=== PATIENT | female | born 1945 | race Caucasian/White ===

== ENCOUNTER 2018-11-05 22:26 | Inpatient (IN) ==
[2018-11-05] MEDS ORDERED: Morphine Inj 4 MG/ML Vial IV.PUSH ONE (23:07)
[2018-11-05] MEDS ORDERED: Sod Chloride 0.9% Inj 1,000 ML IV.SIG ONE (23:07)
--- NOTE | 2018-11-05 23:21 | ED ---
HPI General Chief Complaint: Abdominal Pain Stated Complaint: Weakness Time Seen by Provider: 11/05/18 22:59 Source: patient, EMS and old records reviewed Mode of arrival: EMS Limitations: no limitations History of Present Illness HPI narrative: 73 yo F BIBEMS 2/2 nausea and abdominal pain. Duration is approx one day. "Kidneys are acting up" per Dr Torres who evaluated pt in pt's [facility]. + Decreased appetite. No vomiting or diarrhea. No urinary complaint. Timing constant. Severity moderate. No modifying factor known to patient. Related Data Home Medications Medication Instructions Recorded Confirmed ipratropium-albuterol 3 ml INHALATION Q6-8H PRN 11/06/18 11/06/18 levothyroxine 25 mcg PO DAILY 11/06/18 11/06/18 lisinopril 40 mg PO DAILY 11/06/18 11/06/18 metoclopramide HCl 5 mg PO TID 11/06/18 11/06/18 metoprolol succinate 25 mg PO DAILY 11/06/18 11/06/18 montelukast 10 mg PO QPM 11/06/18 11/06/18 pantoprazole 40 mg PO BID 11/06/18 11/06/18 Allergies Allergy/AdvReac Type Severity Reaction Status Date / Time Sulfa (Sulfonamide Allergy Severe hives Verified 11/05/18 23:12 Antibiotics) aspirin AdvReac Severe Hives Verified 11/05/18 23:12 penicillin G AdvReac Severe Hives Verified 11/05/18 23:12 honey Allergy Intermediate honey Uncoded 11/05/18 23:12 itself causes hives MRI PRECAUTION AdvReac Severe pacemaker Uncoded 11/05/18 23:12 non compatible vv 02/07/15 Review of Systems ROS: all other systems reviewed are negative [facility]LY [facility] Family History Family History Father Heart disease Mother Heart disease Social History Social History Substance History: No History of Abuse Second Hand Smoke Exposure: No Smoking Status: Never smoker How Often Do You Have a Drink Containing Alcohol: Never Recent Travel in [facility] within the Last 8 Weeks: No Recent Out of Country Travel within the Last 8 Weeks: No Course Initial Documented Vital Signs Temperature 98.8 F 11/05/18 23:01 Pulse Rate 66 11/05/18 23:01 Respiratory Rate 16 11/05/18 23:01 Blood Pressure 90/55 L 11/05/18 23:01 Pulse Oximetry 97 11/05/18 23:01 Last Documented Vital Signs Temperature 98.3 F 11/07/18 19:47 Pulse Rate 102 H 11/07/18 19:47 Respiratory Rate 17 11/07/18 19:47 Blood Pressure 91/48 L 11/07/18 19:47 Pulse Oximetry 98 11/07/18 19:47 Medical Decision Making MDM Narrative Medical decision making narrative: PT arrives with PANCHITO with Mg of 0.5. 2g IV magnesium ordered Dr Torres' requested H management. d/w Dr Solorio for [facility]. Medical Screen Exam Complete: Yes Emergency Medical Condition: Yes Lab Data Result diagrams: 11/06/18 05:38 11/07/18 05:10 Lab Results 11/05/18 11/05/18 11/05/18 Range/Units 23:20 23:20 23:20 WBC 13.1 H (4.0-11.0) th/mm3 RBC 3.17 L (4.00-5.30) mil/mm3 Hgb 10.2 L (11.6-15.3) gm/dL Hct 29.6 L (35.0-46.0) % MCV 93.6 (80.0-100.0) fL MCH 32.2 (27.0-34.0) pg MCHC 34.4 (32.0-36.0) % RDW 14.0 (11.6-17.2) % Plt Count 205 (150-450) th/mm3 MPV 9.7 (7.0-11.0) fL Neut % (Auto) 75.9 H (16.0-70.0) % Lymph % (Auto) 16.3 (9.0-44.0) % [place] % (Auto) 6.9 (0.0-8.0) % Eos % (Auto) 0.5 (0.0-4.0) % Baso % (Auto) 0.4 (0.0-2.0) % Neut # (Auto) 10.0 H (1.8-7.7) th/mm3 Lymph # (Auto) 2.1 (1.0-4.8) th/mm3 [place] # (Auto) 0.9 (0.0-0.9) th/mm3 Eos # (Auto) 0.1 (0.0-0.4) th/mm3 Baso # (Auto) 0.1 (0.0-0.2) th/mm3 WBC Differential . Differential Comment Auto diff final Sodium 123 L* (136-145) meq/L Potassium 3.4 L (3.5-5.1) meq/L Chloride 92 L (98-107) meq/L Carbon Dioxide 17.2 L (21.0-32.0) meq/L Anion Gap 14 (5-15) meq/L BUN 43 H (7-18) mg/dL Creatinine 1.92 H (0.50-1.00) mg/dL Estimated GFR 26 L (>89) mL/min Random Glucose 154 H (74-106) mg/dL Calcium 6.5 L* (8.5-10.1) mg/dL Calcium Adj for Albumin 7.2 L* (8.5-10.1) mg/dL Magnesium 0.5 L (1.5-2.5) mg/dL Total Bilirubin 0.4 (0.2-1.0) mg/dL AST 18 (15-37) U/L ALT 14 (10-53) U/L Alkaline Phosphatase 118 H (45-117) U/L Total Protein 6.6 (6.4-8.2) g/dL Albumin 3.1 L (3.4-5.0) g/dL Lipase 203 (73-393) U/L Urine Color Straw (Yellw/Straw) Urine Clarity Clear (Clear) Urine pH 5.0 (5.0-8.5) Ur Specific [place] 1.005 (1.002-1.035) Urine Protein Negative (Neg-Trace) mg/dL Urine Glucose (UA) Negative (Negative) mg/dL Urine Ketones Negative (Negative) mg/dL Urine Occult Blood Small H (Negative) Urine Nitrate Negative (Negative) Urine Bilirubin Negative (Negative) Urine Urobilinogen Less than 2 (Less than 2) mg/dL Ur Leukocyte Esterase Negative (Negative) Urine RBC Less than 1 (0-3) /hpf Urine WBC Less than 1 (0-5) /hpf Ur Squamous Epith Cells 1 (0-5) /hpf Urine Bacteria Occasional H (None) /hpf Urine Mucus Few H (Occasional) /lpf Micro UA Comment Cath-culture ind Ur Microscopic Review Not Reportable Urine Culture Comments Cath-cult indicated 11/06/18 11/06/18 11/07/18 Range/Units 05:38 05:38 05:10 WBC 10.1 (4.0-11.0) th/mm3 RBC 3.19 L (4.00-5.30) mil/mm3 Hgb 10.4 L (11.6-15.3) gm/dL Hct 30.6 L (35.0-46.0) % MCV 95.9 (80.0-100.0) fL MCH 32.5 (27.0-34.0) pg MCHC 33.9 (32.0-36.0) % RDW 13.7 (11.6-17.2) % Plt Count 198 (150-450) th/mm3 MPV 9.3 (7.0-11.0) fL Neut % (Auto) 58.1 (16.0-70.0) % Lymph % (Auto) 32.5 (9.0-44.0) % [place] % (Auto) 8.3 H (0.0-8.0) % Eos % (Auto) 0.8 (0.0-4.0) % Baso % (Auto) 0.3 (0.0-2.0) % Neut # (Auto) 5.9 (1.8-7.7) th/mm3 Lymph # (Auto) 3.3 (1.0-4.8) th/mm3 [place] # (Auto) 0.8 (0.0-0.9) th/mm3 Eos # (Auto) 0.1 (0.0-0.4) th/mm3 Baso # (Auto) 0.0 (0.0-0.2) th/mm3 WBC Differential . Differential Comment Auto diff final Sodium 130 L 138 (136-145) meq/L Potassium 3.5 3.2 L (3.5-5.1) meq/L Chloride 99 107 D (98-107) meq/L Carbon Dioxide 19.4 L 22.1 (21.0-32.0) meq/L Anion Gap 12 9 (5-15) meq/L BUN 34 H 19 H (7-18) mg/dL Creatinine 1.54 H 0.96 (0.50-1.00) mg/dL Estimated GFR 33 L 57 L (>89) mL/min Random Glucose 111 H 101 (74-106) mg/dL Calcium 7.3 L* D 7.6 L (8.5-10.1) mg/dL Calcium Adj for Albumin 8.3 L D (8.5-10.1) mg/dL Magnesium 1.7 D (1.5-2.5) mg/dL Total Bilirubin 0.5 (0.2-1.0) mg/dL AST 23 (15-37) U/L ALT 13 (10-53) U/L Alkaline Phosphatase 112 (45-117) U/L Total Protein 6.2 L (6.4-8.2) g/dL Albumin 2.7 L (3.4-5.0) g/dL Lipase (73-393) U/L Urine Color (Yellw/Straw) Urine Clarity (Clear) Urine pH (5.0-8.5) Ur Specific [place] (1.002-1.035) Urine Protein (Neg-Trace) mg/dL Urine Glucose (UA) (Negative) mg/dL Urine Ketones (Negative) mg/dL Urine Occult Blood (Negative) Urine Nitrate (Negative) Urine Bilirubin (Negative) Urine Urobilinogen (Less than 2) mg/dL Ur Leukocyte Esterase (Negative) Urine RBC (0-3) /hpf Urine WBC (0-5) /hpf Ur Squamous Epith Cells (0-5) /hpf Urine Bacteria (None) /hpf Urine Mucus (Occasional) /lpf Micro UA Comment Ur Microscopic Review Urine Culture Comments 11/07/18 Range/Units 05:10 WBC (4.0-11.0) th/mm3 RBC (4.00-5.30) mil/mm3 Hgb (11.6-15.3) gm/dL Hct (35.0-46.0) % MCV (80.0-100.0) fL MCH (27.0-34.0) pg MCHC (32.0-36.0) % RDW (11.6-17.2) % Plt Count (150-450) th/mm3 MPV (7.0-11.0) fL Neut % (Auto) (16.0-70.0) % Lymph % (Auto) (9.0-44.0) % [place] % (Auto) (0.0-8.0) % Eos % (Auto) (0.0-4.0) % Baso % (Auto) (0.0-2.0) % Neut # (Auto) (1.8-7.7) th/mm3 Lymph # (Auto) (1.0-4.8) th/mm3 [place] # (Auto) (0.0-0.9) th/mm3 Eos # (Auto) (0.0-0.4) th/mm3 Baso # (Auto) (0.0-0.2) th/mm3 WBC Differential Differential Comment Sodium (136-145) meq/L Potassium (3.5-5.1) meq/L Chloride (98-107) meq/L Carbon Dioxide (21.0-32.0) meq/L Anion Gap (5-15) meq/L BUN (7-18) mg/dL Creatinine (0.50-1.00) mg/dL Estimated GFR (>89) mL/min Random Glucose (74-106) mg/dL Calcium (8.5-10.1) mg/dL Calcium Adj for Albumin (8.5-10.1) mg/dL Magnesium 1.3 L (1.5-2.5) mg/dL Total Bilirubin (0.2-1.0) mg/dL AST (15-37) U/L ALT (10-53) U/L Alkaline Phosphatase (45-117) U/L Total Protein (6.4-8.2) g/dL Albumin (3.4-5.0) g/dL Lipase (73-393) U/L Urine Color (Yellw/Straw) Urine Clarity (Clear) Urine pH (5.0-8.5) Ur Specific [place] (1.002-1.035) Urine Protein (Neg-Trace) mg/dL Urine Glucose (UA) (Negative) mg/dL Urine Ketones (Negative) mg/dL Urine Occult Blood (Negative) Urine Nitrate (Negative) Urine Bilirubin (Negative) Urine Urobilinogen (Less than 2) mg/dL Ur Leukocyte Esterase (Negative) Urine RBC (0-3) /hpf Urine WBC (0-5) /hpf Ur Squamous Epith Cells (0-5) /hpf Urine Bacteria (None) /hpf Urine Mucus (Occasional) /lpf Micro UA Comment Ur Microscopic Review Urine Culture Comments Imaging Data Radiologist's impression: Abdomen/Pelvis CT 11/06/18 00:00 CONCLUSION: 1. No evidence of bowel wall thickening, diverticulitis or abscess identified. The bowel gas pattern is unremarkable. Cholecystectomy clips Chest X-Ray 11/06/18 00:36 CONCLUSION: Lungs are grossly clear. Left subclavian bipolar pacer good position. Discharge Plan Discharge Disposition Patient Disposition: ED Admit(ED Internal Use Only) Discharge Order Discharge Orders: ED Use Only Admit Order (Routine); Ordered 11/06/18 Ordered By: Scot Cartwright Physicians Team ED Provider: Scot Cartwright Primary Care Provider: Rodriguez Torres Attending Provider: Stacy Lunsford Status ED Status: Left Department Discharge Information Discharge Date/Time: 11/06/18 03:44
[2018-11-05 23:55] LABS: Baso # (Auto) 0.1 th/mm3 (0.0-0.2); Baso % (Auto) 0.4 % (0.0-2.0); Eos # (Auto) 0.1 th/mm3 (0.0-0.4); Eos % (Auto) 0.5 % (0.0-4.0); Hematocrit 29.6 % (35.0-46.0); Hemoglobin 10.2 gm/dL (11.6-15.3); Lymph # (Auto) 2.1 th/mm3 (1.0-4.8); Lymph % (Auto) 16.3 % (9.0-44.0); Mean Corpuscular HGB Conc 34.4 % (32.0-36.0); Mean Corpuscular Hemoglobin 32.2 pg (27.0-34.0); Mean Corpuscular Volume 93.6 fL (80.0-100.0); Mean Platelet Volume 9.7 fL (7.0-11.0); Mono # (Auto) 0.9 th/mm3 (0.0-0.9); Mono % (Auto) 6.9 % (0.0-8.0); Neut % (Auto) 75.9 % (16.0-70.0); Platelet Count 205 th/mm3 (150-450); Red Blood Count 3.17 mil/mm3 (4.00-5.30); White Blood Count 13.1 th/mm3 (4.0-11.0)
[2018-11-06 00:03] LABS: Bacteria,Urine Occasional /hpf; Bilirubin,Urine Negative (Negative); Clarity,Urine Clear (Clear); Color,Urine Straw (Yellw/Straw); Glucose,Urine (UA) Negative (Negative); Leukocyte Esterase,Urine Negative (Negative); Mucus,Urine Few /lpf (Occasional); Nitrite,Urine Negative (Negative); Specific Gravity,Urine 1.005 (1.002-1.035); Squamous Epithelial Cell,Urine 1 /hpf (0-5)
[2018-11-06 00:09] LABS: Albumin 3.1 g/dL (3.4-5.0); Calcium 6.5 mg/dL (8.5-10.1); Carbon Dioxide 17.2 meq/L (21.0-32.0); Magnesium 0.5 mg/dL (1.5-2.5); Potassium 3.4 meq/L (3.5-5.1); Total Protein 6.6 g/dL (6.4-8.2)
[2018-11-06] MEDS ORDERED: Calcium Gluconate Inj 1 GM in Dextrose 5% in Water Inj 100 ML IV.SIG ONE ×2 (00:13)
[2018-11-06] MEDS: Heparin - SQ 10,000 UNITS/ML Vial SQ SCH (00:35)
[2018-11-06] MEDS: Senna/Docusate Sodium 8.6/50 MG Tablet PO SCH ×2 (00:35→10:09)
[2018-11-06] MEDS: Mag Sulf 1 gm/100 ml Premix 100 ML IV.SIG SCH ×2 (00:59→02:20)
--- NOTE | 2018-11-06 01:09 | XR ---
EXAM DATE: 11/06/2018 1:02 AM EST AGE/SEX: 73 years / Female INDICATIONS: Chest pain with weakness. CLINICAL DATA: This is the patient's initial encounter. Patient reports that signs and symptoms have been present for 1 day and indicates a pain score of Nonresponsive. MEDICAL/SURGICAL HISTORY: Non-responsive. Non-responsive. COMPARISON: No prior exams available for comparison. FINDINGS: A single AP view of the chest demonstrates the lungs to be symmetrically aerated without evidence of mass, infiltrate or effusion. The cardiomediastinal contours are unremarkable. Osseous structures a re intact. Left-sided subclavian dual-lead pacemaker in good position. Small lung volumes. CONCLUSION: Lungs are grossly clear. Left subclavian bipolar pacer good position. Electronically signed by: Pato Wells MD Board Certified Radiologist 11/06/2018 1:08 AM EST
--- NOTE | 2018-11-06 01:30 | CT ---
EXAM DATE: 11/06/2018 1:23 AM EST AGE/SEX: 73 years / Female INDICATIONS: Right lower quadrant pain. CLINICAL DATA: This is the patient's initial encounter. Patient reports that signs and symptoms have been present for 1 day and indicates a pain score of 8/10. MEDICAL/SURGICAL HISTORY: Congestive heart failure. Chronic obstructive pulmonary disease. Hy pertension. Pacemaker. RADIATION DOSE: 9.43 CTDI (mGy) COMPARISON: No prior exams available for comparison. TECHNIQUE: Multiple contiguous axial images were obtained through the abdomen. Images were obtained using multiple row detector helical technique. Using automated exposure control and adjustment of the mA and/or kV according to patient size, radiation dose was kept as low as reasonably achievable to o btain optimal diagnostic quality images. DICOM format image data is available electronically for rev iew and comparison. FINDINGS: Pacemaker wires Lower Lungs: The visualized lower lungs are clear. Liver: The liver has a homogeneous density without space-occupying lesion. There is no dilation of th e biliary tree. Cholecystectomy clips Spleen: Homogeneous density without enlargement. Pancreas: Unremarkable without mass or calcification. Kidneys: Normal in size and shape. No evidence of mass or hydronephrosis. Adrenal Glands: Unremarkable. Aorta: The aorta and proximal iliac vessels are grossly unremarkable without aneurysmal dilation. Bowel/Mesentery: The bowel loops are grossly unremarkable. The cecum and sigmoid colon have a normal configuration. Abdominal Wall: Intact. Retroperitoneum: No evidence of adenopathy in the retrocrural, para-aortic, or deep pelvic regions. Bladder: Contours are smooth. Reproductive Organs: No abnormal masses or calcifications seen. Inguinal: The inguinal region is unremarkable without evidence of adenopathy. Bony Structures: Unremarkable. CONCLUSION: 1. No evidence of bowel wall thickening, diverticulitis or abscess identified. The bowel gas pattern is unremarkable. Cholecystectomy clips Electronically signed by: Pato Wells MD Board Certified Radiologist 11/06/2018 1:29 AM EST
[2018-11-06] MEDS ORDERED: Bisacodyl 10 MG Supp RECTAL PRN (02:21)
[2018-11-06] MEDS ORDERED: Acetaminophen 325 MG Tablet PO PRN (02:21)
[2018-11-06] MEDS ORDERED: Morphine Sulfate Inj 2 MG/ML Vial IV.PUSH PRN (02:21)
[2018-11-06] MEDS: Sod Chloride 0.9% Inj 1,000 ML IV.CONT SCH ×2 (04:48→16:53)
[2018-11-06 06:06] LABS: Baso % (Auto) 0.3 % (0.0-2.0); Eos # (Auto) 0.1 th/mm3 (0.0-0.4); Eos % (Auto) 0.8 % (0.0-4.0); Hematocrit 30.6 % (35.0-46.0); Hemoglobin 10.4 gm/dL (11.6-15.3); Lymph # (Auto) 3.3 th/mm3 (1.0-4.8); Lymph % (Auto) 32.5 % (9.0-44.0); Mean Corpuscular HGB Conc 33.9 % (32.0-36.0); Mean Corpuscular Hemoglobin 32.5 pg (27.0-34.0); Mean Corpuscular Volume 95.9 fL (80.0-100.0); Mean Platelet Volume 9.3 fL (7.0-11.0); Mono # (Auto) 0.8 th/mm3 (0.0-0.9); Mono % (Auto) 8.3 % (0.0-8.0); Neut # (Auto) 5.9 th/mm3 (1.8-7.7); Neut % (Auto) 58.1 % (16.0-70.0); Platelet Count 198 th/mm3 (150-450); Red Blood Count 3.19 mil/mm3 (4.00-5.30); Red Cell Distribution Width 13.7 % (11.6-17.2); White Blood Count 10.1 th/mm3 (4.0-11.0)
[2018-11-06 06:16] LABS: Albumin 2.7 g/dL (3.4-5.0); Calcium 7.3 mg/dL (8.5-10.1); Carbon Dioxide 19.4 meq/L (21.0-32.0); Magnesium 1.7 mg/dL (1.5-2.5); Potassium 3.5 meq/L (3.5-5.1)
[2018-11-06 06:25] LABS: Total Protein 6.2 g/dL (6.4-8.2)
--- NOTE | 2018-11-06 08:33 | ECG ---
Date Performed: 11/06/2018 Time Performed: 01:06:49 PTAGE: 73 years EKG: ELECTRONIC VENTRICULAR PACEMAKER ABNORMAL RHYTHM ECG PREVIOUS TRACING : 02/06/2015 13.25 DOCTOR: Pato Painting Interpretating Date/Time 11/06/2018 08:31:59
--- NOTE | 2018-11-06 09:03 | P.HP ---
History of Present Illness Service: [facility] Primary Care Physician: Rodriguez Torres MD Chief Complaint: nausea and vomiting History of Present Illness: 73-year-old female with past medical history significant for CHF, HTN , diastolic heart failure, COPD, diabetes mellitus, and hypothyroidism who presented to the emergency department on 11/05 from [facility] for further evaluation per Dr. Torres due to "kidneys acting up". Patient complains of nausea, vomiting and decreased appetite for 1 week along with dysuria and suprapubic pain as well for 1 week. She reports diarrhea for the past several days with the last episode being yesterday. Denies any black or bloody stools. She denies any fevers, chills, cough, shortness of breath or chest pain. On admission sodium was 123, potassium 3.4 with elevated BUN at 43, creatinine 1.92 , calcium 6.5, magnesium 0.5. UA was positive with culture pending. Patient also had mild leukocytosis at 13.1. She was hypotensive on admission with BP 90 /55, heart rate stable and afebrile on room air with saturations stable. Abdominal/pelvis CT was negative, chest x-ray was negative, EKG ventricularly paced rhythm. Patient received 1 g of calcium gluconate along with 2 g of IV morphine sulfate overnight as well as IV fluids. Leukocytosis resolved, sodium improved, creatinine, calcium and magnesium also improved. Patient is seen and examined sitting up in bed this morning in no acute distress. She reports that her abdominal pain feels "better". Ate breakfast this morning with no further violent vomiting, she reports some nausea along with ongoing dysuria and suprapubic pain. Denies any fevers, chills, cough, shortness of breath or chest pain. - Diagnosis (1) Nausea and vomiting (2) Abdominal pain (3) Hypomagnesemia (4) Hyponatremia (5) Hypocalcemia (6) Acute kidney injury (7) Dehydration (8) Hypotension Inpatient Certification: I certify that the inpatient services were ordered in accordance with Medicare regulations governing the order. This includes certification that hospital inpatient services are reasonable and necessary and in the case of services not specified as inpatient-only under 42 CFR 419.22(n), that they are appropriately provided as inpatient services in accordance to with the 2-midnight benchmark under 43 CFR 412.3(e) Estimated Total Length of Stay (Days): 2 Plans for Post Hospital Care: Not yet determined Review of Systems All other systems reviewed negative except as stated in HPI FOR[facility]LY [facility] - History History Provided By: Patient - Medical History Medical History: Medical History (Last Updated 11/06/18 @ 09:01 by Rosana Galdamez) CHF (congestive heart failure) COPD (chronic obstructive pulmonary disease) Chronic sinusitis Diabetes mellitus Diastolic heart failure HTN (hypertension) - Surgical History Surgical History: Surgical History (Last Updated 11/06/18 @ 09:01 by Rosana Galdamez) History of cholecystectomy History of permanent cardiac pacemaker placement - Family History Family History: Family History (Last Updated 11/06/18 @ 09:02 by Rosana Galdamez) Father Heart disease Mother Heart disease - Social History I have reviewed the patient's Social History: Yes - Tobacco History Second Hand Smoke Exposure: No Tobacco Use In Past 30 Days: No Smoking Status: Never smoker - Alcohol History How Often Do You Have a Drink Containing Alcohol: Never - Substance Use History Substance History: No History of Abuse - Travel History Recent Travel in the [place] Within the Last 8 Weeks: No Recent Travel Out of the Country Within the Last 8 Weeks: No - Immunization History Tetanus Immunization: Unsure Hx Influenza Vaccine This Season: Yes Medications and Allergies Active Medications: Active Medications Acetaminophen (Tylenol) 650 mg PO Q4H PRN PRN Reason: Temp > 100.4 Al Hydroxide/Mg Hydroxide (Milk Of Magnesia Liq) 30 ml PO Q12H PRN PRN Reason: Mild Constipation Bisacodyl (Dulcolax Supp) 10 mg RECTAL DAILY PRN PRN Reason: SEVERE CONSITIPATION Sodium Chloride (Ns Inj) 1,000 mls @ 100 mls/hr IV.CONT .Q10H [facility] Last Admin: 11/06/18 04:48 Dose: 100 mls/hr Lactulose (Lactulose Liq) 30 ml PO DAILY PRN PRN Reason: SEVERE CONSITIPATION Levothyroxine Sodium (Synthroid) 25 mcg PO DAILY@0600 [facility] Last Admin: 11/06/18 06:04 Dose: 25 mcg Metoprolol Succinate (Toprol Xl) 25 mg PO DAILY [facility] Montelukast Sodium (Singulair) 10 mg PO QPM [facility] Morphine Sulfate (Morphine Inj) 2 mg IV.PUSH Q4H PRN PRN Reason: PAIN SCALE 6 TO 10 Ondansetron HCl (Zofran Inj) 4 mg IV.PUSH Q6H PRN PRN Reason: NAUSEA OR VOMITING Pantoprazole Sodium (Protonix) 40 mg PO BID [facility] Senna/Docusate Sodium (Brigitte-Colace) 1 tab PO BID [facility]ORY Sennosides (Senokot) 17.2 mg PO Q12H PRN PRN Reason: Moderate Constipation Sodium Chloride (Ns Flush) 2 ml IV.FLUSH PRN PRN PRN Reason: FLUSH AFTER USING IV ACCESS Sodium Chloride (Ns Flush) 2 ml IV.FLUSH BID RORY Sodium Chloride (Ns Flush) 2 ml IV.FLUSH PRN PRN PRN Reason: FLUSH AFTER USING IV ACCESS Allergies Allergy/AdvReac Type Severity Reaction Status Date / Time Sulfa (Sulfonamide Allergy Severe hives Verified 11/05/18 23:12 Antibiotics) aspirin AdvReac Severe Hives Verified 11/05/18 23:12 penicillin G AdvReac Severe Hives Verified 11/05/18 23:12 honey Allergy Intermediate honey Uncoded 11/05/18 23:12 itself causes hives MRI PRECAUTION AdvReac Severe pacemaker Uncoded 11/05/18 23:12 non compatible vv 02/07/15 Home Medications Medication Instructions Recorded Confirmed Type ipratropium-albuterol 3 ml INHALATION Q6-8H PRN 11/06/18 11/06/18 History levothyroxine 25 mcg PO DAILY 11/06/18 11/06/18 History lisinopril 40 mg PO DAILY 11/06/18 11/06/18 History metoclopramide HCl 5 mg PO TID 11/06/18 11/06/18 History metoprolol succinate 25 mg PO DAILY 11/06/18 11/06/18 History montelukast 10 mg PO QPM 11/06/18 11/06/18 History pantoprazole 40 mg PO BID 11/06/18 11/06/18 History Exam Vital signs: Vital Signs 11/05/18 23:01 11/05/18 23:08 11/06/18 00:00 Temperature 98.8 F Pulse Rate 66 74 Respiratory Rate 16 16 Blood Pressure 90/55 L 95/54 L Pulse Oximetry 97 96 97 11/06/18 01:03 11/06/18 03:01 11/06/18 04:05 Temperature Pulse Rate 64 92 H 69 Respiratory Rate 16 16 Blood Pressure 91/54 L 124/87 Pulse Oximetry 96 96 11/06/18 04:35 11/06/18 08:00 Temperature 97.3 F L 97.8 F Pulse Rate 64 64 Respiratory Rate 18 18 Blood Pressure 94/54 L 110/58 L Pulse Oximetry 98 99 Intake & Output 11/05/18 11/06/18 11/06/18 18:59 06:59 18:59 Intake Total 1500 / 1500 Output Total 150 / 150 Balance 1350 / 1350 Weight 55.5 kg Intake: IV 1200 / 1200 Magnesium Sulfate 1 gm/D5W 100 200 / 200 ml Premix 100 ML @ 100 mls/hr IV.SIG Q1H [facility] Rx#:[id number] NS Inj 1,000 ML @ Wide Open IV. 1000 / 1000 SIG BOLUS ONE Rx#:[id number] Oral 0 / 0 Other 300 / 300 Output: Urine 150 / 150 Other: Other Intake Source Saline Solution # Bowel Movements 0 Weight On Admission 55.4 kg Narrative: GENERAL: Elderly female sitting up in bed in no acute distress. SKIN: Warm, dry, pale. HEAD: Atraumatic. Normocephalic. EYES: Pupils equal and round. No scleral icterus. No injection or drainage. ENT: No nasal bleeding or discharge. Mucous membranes pink and moist. NECK: Trachea midline. No JVD. CARDIOVASCULAR: Regular rate and rhythm. RESPIRATORY: No accessory muscle use. Clear to auscultation. Breath sounds equal bilaterally. GASTROINTESTINAL: Abdomen soft, nondistended. + Bowel sounds, suprapubic tenderness. MUSCULOSKELETAL: Extremities without clubbing, cyanosis, or edema. No obvious deformities. NEUROLOGICAL: Awake, alert, oriented x3. No obvious cranial nerve deficits. Motor grossly within normal limits. 4/5 muscle strength in the arms and legs. Normal speech. PSYCHIATRIC: Appropriate mood and affect; insight and judgment normal. Results - Labs CBC & Chem 7: 11/06/18 05:38 11/06/18 05:38 Labs: Laboratory Results - last 24 hr 11/05/18 11/05/18 11/05/18 23:20 23:20 23:20 WBC 13.1 H RBC 3.17 L Hgb 10.2 L Hct 29.6 L MCV 93.6 MCH 32.2 MCHC 34.4 RDW 14.0 Plt Count 205 MPV 9.7 Neut % (Auto) 75.9 H Lymph % (Auto) 16.3 [place] % (Auto) 6.9 Eos % (Auto) 0.5 Baso % (Auto) 0.4 Neut # (Auto) 10.0 H Lymph # (Auto) 2.1 [place] # (Auto) 0.9 Eos # (Auto) 0.1 Baso # (Auto) 0.1 WBC Differential . Differential Comment Auto diff final Sodium 123 L* Potassium 3.4 L Chloride 92 L Carbon Dioxide 17.2 L Anion Gap 14 BUN 43 H Creatinine 1.92 H Estimated GFR 26 L Random Glucose 154 H Calcium 6.5 L* Calcium Adj for Albumin 7.2 L* Magnesium 0.5 L Total Bilirubin 0.4 AST 18 ALT 14 Alkaline Phosphatase 118 H Total Protein 6.6 Albumin 3.1 L Lipase 203 Urine Color Straw Urine Clarity Clear Urine pH 5.0 Ur Specific [place] 1.005 Urine Protein Negative Urine Glucose (UA) Negative Urine Ketones Negative Urine Occult Blood Small H Urine Nitrate Negative Urine Bilirubin Negative Urine Urobilinogen Less than 2 Ur Leukocyte Esterase Negative Urine RBC Less than 1 Urine WBC Less than 1 Ur Squamous Epith Cells 1 Urine Bacteria Occasional H Urine Mucus Few H Micro UA Comment Cath-culture ind Ur Microscopic Review Not Reportable Urine Culture Comments Cath-cult indicated 11/06/18 11/06/18 05:38 05:38 WBC 10.1 RBC 3.19 L Hgb 10.4 L Hct 30.6 L MCV 95.9 MCH 32.5 MCHC 33.9 RDW 13.7 Plt Count 198 MPV 9.3 Neut % (Auto) 58.1 Lymph % (Auto) 32.5 [place] % (Auto) 8.3 H Eos % (Auto) 0.8 Baso % (Auto) 0.3 Neut # (Auto) 5.9 Lymph # (Auto) 3.3 [place] # (Auto) 0.8 Eos # (Auto) 0.1 Baso # (Auto) 0.0 WBC Differential . Differential Comment Auto diff final Sodium 130 L Potassium 3.5 Chloride 99 Carbon Dioxide 19.4 L Anion Gap 12 BUN 34 H Creatinine 1.54 H Estimated GFR 33 L Random Glucose 111 H Calcium 7.3 L* D Calcium Adj for Albumin 8.3 L D Magnesium 1.7 D Total Bilirubin 0.5 AST 23 ALT 13 Alkaline Phosphatase 112 Total Protein 6.2 L Albumin 2.7 L Lipase Urine Color Urine Clarity Urine pH Ur Specific [place] Urine Protein Urine Glucose (UA) Urine Ketones Urine Occult Blood Urine Nitrate Urine Bilirubin Urine Urobilinogen Ur Leukocyte Esterase Urine RBC Urine WBC Ur Squamous Epith Cells Urine Bacteria Urine Mucus Micro UA Comment Ur Microscopic Review Urine Culture Comments - Imaging Impressions Abdomen/Pelvis CT 11/06/18 00:00 CONCLUSION: 1. No evidence of bowel wall thickening, diverticulitis or abscess identified. The bowel gas pattern is unremarkable. Cholecystectomy clips Chest X-Ray 11/06/18 00:36 CONCLUSION: Lungs are grossly clear. Left subclavian bipolar pacer good position. Caprini VTE Risk Assessment Caprini VTE Risk Assessment: Moderate/High Risk (score >= 2) Caprini Risk Assessment Model: Point Value = 1 Point Value = 2 Point Value = 3 Point Value = 5 Age 41-60 Minor surgery BMI > 25 kg/m2 Swollen legs Varicose veins or History of unexplained or recurrent spontaneous Oral contraceptives or hormone replacement Sepsis (< 1 month) Serious lung disease, including pneumonia (< 1 month) Abnormal pulmonary function Acute myocardial infarction Congestive heart failure (< 1 month) History of inflammatory bowel disease Medical patient at bed rest Age 61-74 Arthroscopic surgery Major open surgery (> 45 min) Laparoscopic surgery (> 45 min) Malignancy Confined to bed (> 72 hours) Immobilizing plaster cast Central venous access Age >= 75 History of VTE Family history of VTE Factor V Leiden Prothrombin [id number] Lupus anticoagulant Anticardiolipin antibodies Elevated serum homocysteine Heparin-induced thrombocytopenia Other congenital or acquired thrombophilia Stroke (< 1 month) Elective arthroplasty Hip, pelvis, or leg fracture Acute spinal cord injury (< 1 month) Prophylaxis Regimen: Total Risk Factor Score Risk Level Prophylaxis Regimen 0-1 Low Early ambulation 2 Moderate Order ONE of the following: *Sequential Compression Device (SCD) *Heparin 5000 units SQ BID 3-4 Higher Order ONE of the following medications: *Heparin 5000 units SQ TID *Enoxaparin/Lovenox 40 mg SQ daily (WT < 150 kg, CrCl > 30 mL/min) *Enoxaparin/Lovenox 30 mg SQ daily (WT < 150 kg, CrCl > 10-29 mL/min) *Enoxaparin/Lovenox 30 mg SQ BID (WT < 150 kg, CrCl > 30 mL/min) AND/OR *Sequential Compression Device (SCD) 5 or more Highest Order ONE of the following medications: *Heparin 5000 units SQ TID (Preferred with Epidurals) *Enoxaparin/Lovenox 40 mg SQ daily (WT < 150 kg, CrCl > 30 mL/min) *Enoxaparin/Lovenox 30 mg SQ daily (WT < 150 kg, CrCl > 10-29 mL/min) *Enoxaparin/Lovenox 30 mg SQ BID (WT < 150 kg, CrCl > 30 mL/min) AND *Sequential Compression Device (SCD) Assessment and Plan - Assessment (1) Nausea and vomiting Code(s): R11.2 - Nausea with vomiting, unspecified Status: Acute (2) Abdominal pain Code(s): R10.9 - Unspecified abdominal pain Status: Acute (3) Hypomagnesemia Code(s): E83.42 - Hypomagnesemia Status: Acute (4) Hyponatremia Code(s): E87.1 - Hypo-osmolality and hyponatremia Status: Acute (5) Hypocalcemia Code(s): E83.51 - Hypocalcemia Status: Acute (6) Acute kidney injury Code(s): N17.9 - Acute kidney failure, unspecified Status: Acute (7) Dehydration Code(s): E86.0 - Dehydration Status: Acute (8) Hypotension Code(s): I95.9 - Hypotension, unspecified Status: Acute - Plan 73-year-old female with past medical history significant for CHF, HTN , diastolic heart failure, COPD, diabetes mellitus, and hypothyroidism who presented to the emergency department on 11/05 from [facility] for further evaluation per Dr. Torres due to "kidneys acting up". Acute kidney injury, likely secondary to dehydration BUN and on admission 43, creatinine 1.19 -Continue IV fluids. -BUN creatinine this morning improved, continue to monitor -Monitor for fluid overload secondary to history of CHF Nausea/vomiting/abdominal pain -CT of abdomen pelvis negative -Complaints of diarrhea, check stool for C. difficile -Tolerating diet so far. -PRN antiemetics and pain medication -Consult GI if needed Suprapubic pain Possible UTI -Leukocytosis improved, afebrile -Symptomatic, pending UA culture, follow results. -Start IV Cipro for possible UTI Hyponatremia, acute Hypomagnesemia, acute Hypocalcemia, acute -BUN this morning improved sodium, calcium, magnesium -Continue to encourage oral intake if tolerating. -Continue to monitor electrolytes. Hypotension, acute -Likely secondary to dehydration, BP so far stable. -Hold beta-clary, continue IV hydration and monitor vitals Chronic issues including hypothyroidism COPD GERD -Continue home medications, stable. DVT prophylaxissubcu heparin and SCD's
[2018-11-06] MEDS: Ciprofloxacin 200 MG/100 ML 200 MG/100 ML PIGGYBACK IV.SIG SCH ×2 (10:08→22:15)
--- NOTE | 2018-11-06 13:57 | P.DIET ---
Nutritional Evaluation Type of nutrition evaluation: initial Nutrition consult regarding: Diet Evaluation Nutrition screening: Weight Loss > 10 lbs Screening comments: 11/06 WLS Objective - Diagnosis PANCHITO, Hypo Mg, Hypo Na - Objective Body Mass Index: 27.4 % IBW: 153 (IBW = 80lb) Body Weight Used for Calculations: Actual (55.5kg) Energy Needs - Lower Range (kCal/kg): 25 Energy Needs - Upper Range (kCal/kg): 30 Lower Limit kCal/kg (kCals): 1,388 Upper Limit kCal/kg (kCals): 1,665 Lower Limit Protein Factor (Grams per Kg): 1.1 Upper Limit Protein Factor (Grams per Kg): 1.3 Lower Protein Needs (Protein): 61 Upper Protein Needs (Protein): 72 Dietitian Reviewed in Medical Record: Current diet, Curent medications, Intake & Output, Labs, Medical history Diet Order: regular Oral Diet Intake Amount: Fair 50-75% Objective Comments: PMH: CHF, chronic sinusitis, COPD, DM, diastolic HF, HTN Meds: Synthroid Labs: BUN 34, Cr 1.54, estGFR 33, random glucose 154 111, Ca+ 7.3 Assessment Assessment: Pt currently at nutritional risk r/t reported unplanned wt loss. Pt stated she has a poor appetite and ate around 50% of her eggs independently this am (11/06 ) per SPORTS TEACHER. SPORTS TEACHER also mentioned she fed pt a few more bites before she said she was full. RD to recommend Ensure Enlive TID as PO supplement for additional nutrition. Continue to monitor PO and supplement intake. Encourage PO intake and provide feeding assistance as needed. Labs reviewed, dietitian following. Recommendations: 1. RD to recommend Ensure Enlive TID as PO supplement for additional nutrition 2. Continue to monitor PO and supplement intake 3. Encourage PO intake and provide feeding assistance as needed 4. Dietitian following Dietitian to Monitor: Lab values, Supplement acceptance, Intake & Output, Diet tolerance, PO Intake, Medical course
[2018-11-06] MEDS: Montelukast 10 MG Tablet PO SCH (17:29)
[2018-11-07] MEDS: Sod Chloride 0.9% Inj 1,000 ML IV.CONT SCH (00:29)
[2018-11-07 07:36] LABS: Calcium 7.6 mg/dL (8.5-10.1); Carbon Dioxide 22.1 meq/L (21.0-32.0); Potassium 3.2 meq/L (3.5-5.1)
[2018-11-07] MEDS: Senna/Docusate Sodium 8.6/50 MG Tablet PO SCH ×2 (08:45→21:02)
[2018-11-07] MEDS: Heparin - SQ 10,000 UNITS/ML Vial SQ SCH ×2 (08:45→21:02)
[2018-11-07] MEDS: Ciprofloxacin 200 MG/100 ML 200 MG/100 ML PIGGYBACK IV.SIG SCH ×3 (08:45→21:02)
--- NOTE | 2018-11-07 10:13 | P.PN ---
Subjective Interval history: Follow-up visit for electrolyte abnormality, dehydration, nausea, vomiting and abdominal pain. Patient seen and examined sitting up in bed in no acute distress. Reports ongoing lower abdominal/suprapubic pain with dysuria. Denies any nausea, vomiting, fevers, chills, cough or shortness of breath. No further reports of diarrhea. Reports eating well, got up to walk with physical therapy yesterday. Physical Exam Vital signs: Vital Signs 11/06/18 12:00 11/06/18 16:00 11/06/18 19:51 Temperature 97.8 F 97.6 F 98.1 F Pulse Rate 63 64 66 Respiratory Rate 18 18 18 Blood Pressure 106/53 L 110/56 L 112/53 L Pulse Oximetry 99 98 97 11/06/18 23:50 11/07/18 04:08 11/07/18 07:26 Temperature 97.7 F 97.9 F Pulse Rate 60 85 Respiratory Rate 17 18 16 Blood Pressure 108/53 L 113/56 L Pulse Oximetry 97 95 11/07/18 08:00 Temperature 98.4 F Pulse Rate 58 L Respiratory Rate 18 Blood Pressure 84/51 L Pulse Oximetry 97 Intake & Output 11/06/18 11/07/18 11/07/18 18:59 06:59 18:59 Intake Total 2099 / 2099 210 / 210 100 / 100 Output Total 900 / 900 850 / 850 Balance 1200 / 1200 -640 / -640 100 / 100 Weight 55.5 kg Intake: IV 2099 210 / 210 100 / 100 NS Inj 1,000 ML @ 100 mls/hr IV 1999 / 1999 .CONT .Q10H [facility] Rx#:[id number] Cipro 200 MG/100 ML Inj 200 mg 100 / 100 100 / 100 100 / 100 In 100 ml @ 100 mls/hr IV.SIG Q12H [facility] Rx#:[id number] Oral 0 / 0 Output: Urine 900 / 900 Urine Amount (Catheter) 850 / 850 Female External 850 / 850 Other: Date of Last Bowel Movement 11/05/18 # Bowel Movements 0 Narrative: GENERAL: Elderly female sitting up in bed in no acute distress. SKIN: Warm, dry, pale. HEAD: Atraumatic. Normocephalic. EYES: Pupils equal and round. No scleral icterus. No injection or drainage. ENT: No nasal bleeding or discharge. Mucous membranes pink and moist. NECK: Trachea midline. No JVD. CARDIOVASCULAR: Regular rate and rhythm. RESPIRATORY: No accessory muscle use. Clear to auscultation. Breath sounds equal bilaterally. GASTROINTESTINAL: Abdomen soft, nondistended. + Bowel sounds, suprapubic tenderness. MUSCULOSKELETAL: Extremities without clubbing, cyanosis, or edema. No obvious deformities. NEUROLOGICAL: Awake, alert, oriented x3. No obvious cranial nerve deficits. Motor grossly within normal limits. Normal speech. PSYCHIATRIC: Appropriate mood and affect; insight and judgment normal. - Urinary Catheter Management Female External Cath placed during this visit: no Results - Labs CBC & Chem 7: 11/06/18 05:38 11/07/18 05:10 Laboratory Results - last 24 hr 11/07/18 05:10 Sodium 138 Potassium 3.2 L Chloride 107 D Carbon Dioxide 22.1 Anion Gap 9 BUN 19 H Creatinine 0.96 Estimated GFR 57 L Random Glucose 101 Calcium 7.6 L Assessment and Plan - Assessment (1) Nausea and vomiting Code(s): R11.2 - Nausea with vomiting, unspecified Status: Acute (2) Abdominal pain Code(s): R10.9 - Unspecified abdominal pain Status: Acute (3) Hypomagnesemia Code(s): E83.42 - Hypomagnesemia Status: Acute (4) Hyponatremia Code(s): E87.1 - Hypo-osmolality and hyponatremia Status: Acute (5) Hypocalcemia Code(s): E83.51 - Hypocalcemia Status: Acute (6) Acute kidney injury Code(s): N17.9 - Acute kidney failure, unspecified Status: Acute (7) Dehydration Code(s): E86.0 - Dehydration Status: Acute (8) Hypotension Code(s): I95.9 - Hypotension, unspecified Status: Acute - Plan 73-year-old female with past medical history significant for CHF, HTN , diastolic heart failure, COPD, diabetes mellitus, and hypothyroidism who presented to the emergency department on 11/05 from [facility] for further evaluation per Dr. Torres due to "kidneys acting up". Acute kidney injury, likely secondary to dehydration BUN and on admission 43, creatinine 1.19 -Renal function improved, discontinue IV fluids since she is tolerating oral diet. -Avoid nephrotoxins Nausea/vomiting/abdominal pain -CT of abdomen pelvis negative -No further diarrhea reported. -Tolerating diet so far. -PRN antiemetics and pain medication Suprapubic pain Possible UTI -Leukocytosis improved, afebrile -Symptomatic, pending UA culture, follow results. -Continue IV Cipro for possible UTI, UA reintubated due to immature growth. Hyponatremia, acute Hypomagnesemia, acute Hypocalcemia, acute -Sodium levels within normal limits, renal function improving. Hypokalemia and hypomagnesemia. -Replace orally and IV, recheck labs in the a.m. -Dietary following, supplement added to meal trays. Hypotension, acute -Likely secondary to dehydration. -BP on the low side this morning, asymptomatic, continue to hold beta-clary. Continue monitoring vitals. Chronic issues including hypothyroidism COPD GERD -Continue home medications, stable. DVT prophylaxissubcu heparin and SCD's Discussed Condition With: Patient and RN
[2018-11-07] MEDS: Mag Sulf 1 gm/100 ml Premix 100 ML IV.SIG SCH ×2 (11:59→13:19)
[2018-11-07] MEDS: Montelukast 10 MG Tablet PO SCH ×2 (15:22→17:13)
[2018-11-08 09:01] LABS: Calcium 8.6 mg/dL (8.5-10.1); Carbon Dioxide 29.2 meq/L (21.0-32.0); Magnesium 1.7 mg/dL (1.5-2.5); Potassium 4.8 meq/L (3.5-5.1)
[2018-11-08] MEDS: Ciprofloxacin 200 MG/100 ML 200 MG/100 ML PIGGYBACK IV.SIG SCH (09:12)
[2018-11-08] MEDS: Heparin - SQ 10,000 UNITS/ML Vial SQ SCH (09:13)
[2018-11-08] MEDS: Senna/Docusate Sodium 8.6/50 MG Tablet PO SCH (09:13)
--- NOTE | 2018-11-08 10:16 | P.PN ---
Subjective Interval history: Patient is seen and examined resting in bed in no acute distress. Reports some nausea this morning for which she had to get a medication for, was able to eat her breakfast without any vomiting. Denies any fevers, chills, cough, shortness of breath or chest pain. Patient does report burning with urination but describes this as burning on her skin and after urination not while she is urinating. Physical Exam Vital signs: Vital Signs 11/07/18 11:32 11/07/18 12:00 11/07/18 13:32 Temperature 98 F Pulse Rate 70 Respiratory Rate 18 16 Blood Pressure 99/54 L 99/54 L Pulse Oximetry 95 11/07/18 15:14 11/07/18 17:13 11/07/18 19:00 Temperature 97.4 F L Pulse Rate 76 61 Respiratory Rate 18 16 Blood Pressure 101/59 L Pulse Oximetry 98 11/07/18 19:47 11/07/18 21:01 11/07/18 23:19 Temperature 98.3 F 98 F Pulse Rate 102 H 77 Respiratory Rate 17 17 Blood Pressure 91/48 L 112/55 L Pulse Oximetry 98 98 97 11/07/18 23:59 11/08/18 03:47 11/08/18 08:00 Temperature 97.5 F L 97.8 F Pulse Rate 77 78 90 Respiratory Rate 17 18 Blood Pressure 116/56 L 109/51 L Pulse Oximetry 100 96 Intake & Output 11/07/18 11/08/18 11/08/18 18:59 06:59 18:59 Intake Total 1300 / 1300 120 / 120 Output Total 1560 / 1560 300 / 300 Balance -260 / -260 -180 / -180 Weight 58.4 kg Intake: IV 300 / 300 100 / 100 Cipro 200 MG/100 ML Inj 200 mg 100 / 100 100 / 100 In 100 ml @ 100 mls/hr IV.SIG Q12H [facility]ORY Rx#:[id number] Magnesium Sulfate 1 gm/D5W 100 200 / 200 ml Premix 100 ML @ 100 mls/hr IV.SIG Q1H RROY Rx#:[id number] Oral 1000 / 1000 20 Output: Urine 1560 / 1560 300 / 300 Other: Date of Last Bowel Movement 11/05/18 11/05/18 11/05/18 # Bowel Movements 0 - Urinary Catheter Management Female External Cath placed during this visit: no Results - Labs CBC & Chem 7: 11/06/18 05:38 11/08/18 07:59 Laboratory Results - last 24 hr 11/07/18 11/08/18 05:10 07:59 Sodium 140 Potassium 4.8 D Chloride 106 Carbon Dioxide 29.2 Anion Gap 5 BUN 22 H Creatinine 1.29 H Estimated GFR 40 L Random Glucose 109 H Calcium 8.6 D Magnesium 1.3 L 1.7 Microbiology 11/05/18 23:20 Catheterized Urine Urine Culture - Preliminary Immature growth - reincubate Assessment and Plan - Assessment (1) Nausea and vomiting Code(s): R11.2 - Nausea with vomiting, unspecified Status: Acute (2) Abdominal pain Code(s): R10.9 - Unspecified abdominal pain Status: Acute (3) Hypomagnesemia Code(s): E83.42 - Hypomagnesemia Status: Acute (4) Hyponatremia Code(s): E87.1 - Hypo-osmolality and hyponatremia Status: Acute (5) Hypocalcemia Code(s): E83.51 - Hypocalcemia Status: Acute (6) Acute kidney injury Code(s): N17.9 - Acute kidney failure, unspecified Status: Acute (7) Dehydration Code(s): E86.0 - Dehydration Status: Acute (8) Hypotension Code(s): I95.9 - Hypotension, unspecified Status: Acute - Plan 73-year-old female with past medical history significant for CHF, HTN , diastolic heart failure, COPD, diabetes mellitus, and hypothyroidism who presented to the emergency department on 11/[address] [facility] for further evaluation per Dr. Torres due to "kidneys acting up". Acute kidney injury, likely secondary to dehydration BUN and on admission 43, creatinine 1.19 -Renal function improved, discontinue IV fluids since she is tolerating oral diet. -Avoid nephrotoxins Nausea/vomiting/abdominal pain -CT of abdomen pelvis negative -No further diarrhea reported. -Tolerating diet so far. -PRN antiemetics and pain medication Suprapubic pain Possible UTI -Leukocytosis improved, afebrile -Symptomatic, pending UA culture, follow results. -Continue IV Cipro for possible UTI, UA reintubated due to immature growth. Hyponatremia, acute Hypomagnesemia, acute Hypocalcemia, acute -Sodium levels within normal limits, renal function improving. Hypokalemia and hypomagnesemia. -Replace orally and IV, recheck labs in the a.m. -Dietary following, supplement added to meal trays. Hypotension, acute -Likely secondary to dehydration. -BP on the low side this morning, asymptomatic, continue to hold beta-clary. Continue monitoring vitals. Chronic issues including hypothyroidism COPD GERD -Continue home medications, stable. DVT prophylaxissubcu heparin and SCD's
--- NOTE | 2018-11-08 10:36 | P.DS ---
Date of admission: 11/06/18 02:26 Primary care physician: Rdoriguez Torres MD Attending physician on discharge: Stacy Lunsford Anticipated date of discharge: 11/08/18 Brief History from admission: 73-year-old female with past medical history significant for CHF, HTN , diastolic heart failure, COPD, diabetes mellitus, and hypothyroidism who presented to the emergency department on 11/05 from [facility] for further evaluation per Dr. Torres due to "kidneys acting up". Patient complains of nausea, vomiting and decreased appetite for 1 week along with dysuria and suprapubic pain as well for 1 week. She reports diarrhea for the past several days with the last episode being yesterday. Denies any black or bloody stools. She denies any fevers, chills, cough, shortness of breath or chest pain. On admission sodium was 123, potassium 3.4 with elevated BUN at 43, creatinine 1.92 , calcium 6.5, magnesium 0.5. UA was positive with culture pending. Patient also had mild leukocytosis at 13.1. She was hypotensive on admission with BP 90 /55, heart rate stable and afebrile on room air with saturations stable. Abdominal/pelvis CT was negative, chest x-ray was negative, EKG ventricularly paced rhythm. Patient received 1 g of calcium gluconate along with 2 g of IV morphine sulfate overnight as well as IV fluids. Leukocytosis resolved, sodium improved, creatinine, calcium and magnesium also improved. Patient is seen and examined sitting up in bed this morning in no acute distress. She reports that her abdominal pain feels "better". Ate breakfast this morning with no further violent vomiting, she reports some nausea along with ongoing dysuria and suprapubic pain. Denies any fevers, chills, cough, shortness of breath or chest pain. DS: Diagnosis - Discharge Diagnosis (1) Nausea and vomiting Status: Acute (2) Abdominal pain Status: Acute (3) Hypomagnesemia Status: Acute (4) Hyponatremia Status: Acute (5) Hypocalcemia Status: Acute (6) Acute kidney injury Status: Acute (7) Dehydration Status: Acute (8) Hypotension Status: Acute DS: Medications - Discharge Medications Prescriptions: ondansetron HCl [Zofran] 4 mg PO Q6-8H PRN #15 tab PRN Reason: Nausea DS: Summary Hospital Course: 73-year-old female with past medical history significant for CHF, HTN , diastolic heart failure, COPD, diabetes mellitus, and hypothyroidism who presented to the emergency department on 11/05 from [facility] for further evaluation per Dr. Torres due to "kidneys acting up". Patient was found to be severely hyponatremic with sodium level 123 hypokalemic potassium level 3.4, creatinine 1.92, BUN 43, hypocalcemic with calcium level 6.5 and hypomagnesemic with magnesium level 0.5. She was treated with IV fluids and electrolytes replaced. Patient also complained of dysuria during her stay and she was treated with IV Cipro, urine culture was positive for lactobacillus species and antibiotics discontinued. Very mild leukocytosis on admission with white count 13.1 which resolved and afebrile during her hospitalization. Patient's antihypertensive medications were additionally held due to low BP. She was taken off of IV fluids and tolerated regular diet well, some occasional nausea without vomiting. BMP on the date of her admission with stable electrolytes, mildly elevated BUN at 22 and creatinine 1.29 however improved compared to admission. Patient seen and examined sitting up in bed in no acute distress. Denies any nausea, vomiting, fevers, chills, cough or shortness of breath. No further reports of diarrhea. Some nausea this morning but no vomiting, was able to eat her breakfast. Discussed with nurse, no acute changes overnight or this morning. Discussed with gearcase assembler for discharge possibly today back to patient's assisted living facility. Arrangements have been made, medication reconciliation updated and requests for BMP with magnesium in the next 3 days. - Time Spent with Patient Total time spent providing and/or coordinating discharge services: Greater than 30 minutes - Quality: VTE Deep Vein Thrombosis/Pulmonary Embolism Present on Admission: No Exam Vital signs: Vital Signs 11/07/18 11:32 11/07/18 12:00 11/07/18 13:32 Temperature 98 F Pulse Rate 70 Respiratory Rate 18 16 Blood Pressure 99/54 L 99/54 L Pulse Oximetry 95 11/07/18 15:14 11/07/18 17:13 11/07/18 19:00 Temperature 97.4 F L Pulse Rate 76 61 Respiratory Rate 18 16 Blood Pressure 101/59 L Pulse Oximetry 98 11/07/18 19:47 11/07/18 21:01 11/07/18 23:19 Temperature 98.3 F 98 F Pulse Rate 102 H 77 Respiratory Rate 17 17 Blood Pressure 91/48 L 112/55 L Pulse Oximetry 98 98 97 11/07/18 23:59 11/08/18 03:47 11/08/18 08:00 Temperature 97.5 F L 97.8 F Pulse Rate 77 78 90 Respiratory Rate 17 18 Blood Pressure 116/56 L 109/51 L Pulse Oximetry 100 96 Intake & Output 11/07/18 11/08/18 11/08/18 18:59 06:59 18:59 Intake Total 1300 / 1300 120 / 120 Output Total 1560 / 1560 300 / 300 Balance -260 / -260 -180 / -180 Weight 58.4 kg Intake: IV 300 / 300 100 / 100 Cipro 200 MG/100 ML Inj 200 mg 100 / 100 100 / 100 In 100 ml @ 100 mls/hr IV.SIG Q12H [facility]ORY Rx#:[id number] Magnesium Sulfate 1 gm/D5W 100 200 / 200 ml Premix 100 ML @ 100 mls/hr IV.SIG Q1H RORY Rx#:[id number] Oral 1000 / 1000 Output: Urine 1560 / 1560 300 / 300 Other: Date of Last Bowel Movement 11/05/18 11/05/18 11/05/18 # Bowel Movements 0 Narrative: GENERAL: Elderly female sitting up in bed in no acute distress. SKIN: Warm, dry, pale. HEAD: Atraumatic. Normocephalic. EYES: Pupils equal and round. No scleral icterus. No injection or drainage. ENT: No nasal bleeding or discharge. Mucous membranes pink and moist. NECK: Trachea midline. No JVD. CARDIOVASCULAR: Regular rate and rhythm. RESPIRATORY: No accessory muscle use. Clear to auscultation. Breath sounds equal bilaterally. GASTROINTESTINAL: Abdomen soft, nondistended. + Bowel sounds, suprapubic tenderness. MUSCULOSKELETAL: Extremities without clubbing, cyanosis, or edema. No obvious deformities. NEUROLOGICAL: Awake, alert, oriented x3. No obvious cranial nerve deficits. Motor grossly within normal limits. Normal speech. PSYCHIATRIC: Appropriate mood and affect; insight and judgment normal. Results Procedures completed during hospitalization: None Labs on day of discharge: Labs from last 24 hours 11/08/18 11/07/18 07:59 05:10 Sodium 140 Potassium 4.8 D Chloride 106 Carbon Dioxide 29.2 Anion Gap 5 BUN 22 H Creatinine 1.29 H Estimated GFR 40 L Random Glucose 109 H Calcium 8.6 D Magnesium 1.7 1.3 L - Impressions ITS Impressions Abdomen/Pelvis CT 11/06/18 00:00 CONCLUSION: 1. No evidence of bowel wall thickening, diverticulitis or abscess identified. The bowel gas pattern is unremarkable. Cholecystectomy clips Chest X-Ray 11/06/18 00:36 CONCLUSION: Lungs are grossly clear. Left subclavian bipolar pacer good position. Discharge Plan - Discharge Disposition Patient Disposition: 04 [facility] - Discharge Condition Condition: Fair - Discharge Order Discharge Orders: Discharge Order (Routine); Ordered 11/08/18 Ordered By: Rosana Galdamez - Physicians Team Primary Care Provider: Rodriguez Torres Attending Provider: Stacy Lunsford
== END 2018-11-08 15:12 ==
LOC: NEPE 22:26 → NEDA 11-06 02:26 → N06 11-06 03:44
PROVIDERS: ADMIT Hospitalist; ATTEND Hospitalist